=== PATIENT | female | born 1930 | race Caucasian/White ===

== ENCOUNTER 2017-04-20 14:13 | Observation (INO) | payer MEDICARE, MEDICAID, OTHER ==
[2017-04-20] MEDS ORDERED: Enoxaparin 60 MG/0.6 ML Syringe SUBCUT STA (15:25)
--- NOTE | 2017-04-20 15:31 | EDM.PDOC ---
ED HPI GENERAL MEDICAL PROBLEM - General Chief Complaint: Neurological Problem Stated Complaint: DIZZINESS/WEAKNESS ON R SIDE Time Seen by Provider: 04/20/17 14:56 Source of Information: Reports: Patient, RN Notes Reviewed, Other (Friend) History Limitations: Reports: No Limitations - History of Present Illness INITIAL COMMENTS - FREE TEXT/NARRATIVE: The patient states that she was drinking some tea and coffee around 13:00 this afternoon, when she developed right upper and right lower extremity weakness, decreased sensation to her right upper extremity, right lower extremity and the lower half of the right side of her face, and a "feeling dissociation" sensation , wherein she felt like her body would not follow her brains commands. She also experienced a brief "kaleidoscope" vision in her right eye area at no time did she have a headache, facial droop, or difficulty with speech. Her symptoms lasted approximately 15 minutes, during which time she required assistance to get to the bathroom. She took for baby aspirin around 13:30, approximately 15 minutes after her symptoms have resolved. Her symptoms have not recurred. No prior similar symptoms. While the patient does not have any formal diagnoses of any cardiac issues, she does report occasional palpitations. The patient does not have a PCP, and she reports that her last general physical examination was perhaps 60 years ago. - Related Data Allergies Allergy/AdvReac Type Severity Reaction Status Date / Time No Known Allergies Allergy Verified 04/20/17 14:25 Home Meds: Home Meds . [Unable to Verify Home Med List] 04/20/17 [History] Past Medical History - Past Surgical History HEENT Surgical History: Reports: Cataract Surgery, Oral Surgery ([place] teeth extraction) Female Surgical History: Reports: D&C (x 1) Social & Family History - Tobacco Use Smoking Status *Q: Former Smoker Years of Tobacco use: 28 Packs/Tins Daily: 0.2 Month Tobacco Last Used: Quit 1979 - Caffeine Use Caffeine Use: Reports: Coffee Other Caffeine Use: occasionally - Alcohol Use Alcohol Use History: Yes Alcohol Use Frequency: Socially - Recreational Drug Use Recreational Drug Use: No - Living Situation & Occupation Living situation: Reports: , Alone 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 GENERAL - Review of Systems Review Of Systems: See Below Constitutional: Reports: Other (general weakness) HEENT: Reports: No Symptoms Respiratory: Reports: No Symptoms Cardiovascular: Reports: No Symptoms Endocrine: Reports: No Symptoms GI/Abdominal: Reports: No Symptoms : Reports: No Symptoms Musculoskeletal: Reports: No Symptoms Skin: Reports: No Symptoms Neurological: Reports: No Symptoms Psychiatric: Reports: No Symptoms Hematologic/Lymphatic: Reports: No Symptoms Immunologic: Reports: No Symptoms ED EXAM, NEURO - Physical Exam Exam: See Below Exam Limited By: No Limitations General Appearance: Alert, WD/WN, No Apparent Distress Eye Exam: Bilateral Eye: EOMI, Other (S/P cataract surgery) Ears: Normal External Exam, Hearing Grossly Normal Nose: Normal Inspection, No Blood Throat/Mouth: Normal Inspection, Normal Lips, Normal Voice, No Airway Compromise Head Exam: Atraumatic, Normocephalic Neck: Normal Inspection, Full Range of Motion. No: Carotid Bruit Respiratory/Chest: No Respiratory Distress, Lungs Clear, Normal Breath Sounds, No Accessory Muscle Use Cardiovascular: Normal Peripheral Pulses, Regular Rate, Rhythm, No Gallop, No JVD, No Murmur, No Rub GI/Abdominal: Normal Bowel Sounds, Soft, Non-Tender, No Organomegaly, No Distention, No Abnormal Bruit, No Mass (Female) Exam: Deferred Rectal (Female) Exam: Deferred Neurological: Alert, Normal Dorsiflexion, CN II-XII Intact, Normal Plantar Flexion, Normal Reflexes, No Motor/Sensory Deficits, Oriented x 3 Back Exam: Normal Inspection, Full Range of Motion, NT Extremities: Normal Inspection, Normal Range of Motion, No Pedal Edema, Normal Capillary Refill Psychiatric: Normal Affect Skin Exam: Warm, Dry, Intact, Normal Color, No Rash EKG INTERPRETATION EKG Date: 04/20/17 Time: 14:34 Rhythm: NSR Rate (Beats/Min): 74 [place]: Normal P-Wave: Present QRS: Normal ST-T: Normal QT: Normal Comparison: NA - No Prior EKG Course - Vital Signs Last Recorded V/S: Last Vital Signs Temp 36.7 C 04/20/17 14:21 Pulse 74 04/20/17 14:21 Resp 18 04/20/17 14:21 BP 158/80 H 04/20/17 14:21 Pulse Ox 97 04/20/17 14:21 - Orders/Labs/Meds Orders: Active Orders 24 hr Category Date Time Status EKG 12 Lead [EK] Stat Ther 04/20/17 15:24 Ordered Labs: Laboratory Tests 04/20/17 04/20/17 04/20/17 Range/Units 14:50 14:50 14:50 WBC 5.70 (3.98-10.04) K/mm3 RBC 4.99 (3.98-5.22) M/mm3 Hgb 15.5 (11.2-15.7) gm/L Hct 44.7 (34.1-44.9) % MCV 89.6 (79.4-94.8) fl MCH 31.1 (25.6-32.2) pg MCHC 34.7 (32.2-35.5) g/dl RDW Std Deviation 43.9 (36.4-46.3) fL Plt Count 240 (182-369) K/mm3 MPV 9.0 L (9.4-12.3) fl Neutrophils % (Manual) 45 (40-60) % Band Neutrophils % 0 (0-10) % Lymphocytes % (Manual) 50 H (20-40) % Atypical Lymphs % 0 % Monocytes % (Manual) 5 (2-10) % Eosinophils % (Manual) 0 L (0.7-5.8) % Basophils % (Manual) 0 L (0.1-1.2) Platelet Estimate Adequate RBC Morph Comment Normal PT 10.6 (8.0-13.0) SECONDS INR 0.97 APTT 26 (22-36) SECONDS Sodium 141 (136-145) mEq/L Potassium 4.0 (3.5-5.1) mEq/L Chloride 104 (98-107) mEq/L Carbon Dioxide 24 (21-32) mEq/L Anion Gap 17.0 H (5-15) BUN 13 (7-18) mg/dL Creatinine 0.8 (0.55-1.02) mg/dL Est Cr Clr Drug Dosing 41.60 mL/min Estimated GFR (MDRD) > 60 (>60) mL/min BUN/Creatinine Ratio 16.3 (14-18) Glucose 98 (83-115) mg/dL Calcium 9.0 (8.5-10.1) mg/dL Total Bilirubin 0.4 (0.2-1.0) mg/dL AST 20 (15-37) U/L ALT 23 (14-59) U/L Alkaline Phosphatase 66 (46-116) U/L Total Protein 6.9 (6.4-8.2) g/dl Albumin 3.5 (3.4-5.0) g/dl Globulin 3.4 gm/dL Albumin/Globulin Ratio 1.0 (1-2) Meds: Medications Discontinued Medications Generic Name Dose Route Start Last Admin Trade Name Freq PRN Reason Stop Dose Admin Enoxaparin Sodium 50 mg 04/20/17 15:25 04/20/17 15:39 Lovenox SUBCUT 04/20/17 15:26 50 mg ONETIME STA Administration - Re-Assessments/Exams Free Text/Narrative Re-Assessment/Exam: 04/20/17 15:26 Clinically, the patient suffered a TIA. A TIA workup, including an MRI/MRA of the brain and neck, and an echocardiogram, along with blood work, is indicated. I have ordered Lovenox to reduce the risk of the patient having a stroke, and am recommending admission to the hospital, which the patient has agreed to. Case discussed with Dr. Hutchins at 15:23. He agrees to place the patient into observation, on telemetry. Departure - Departure Time of Disposition: 15:28 Disposition: Refer to Observation Condition: Good Clinical Impression: TIA (transient ischemic attack) - Discharge Information - My Orders Last 24 Hours: My Active Orders 04/20/17 15:24 EKG 12 Lead [EK] Stat - Assessment/Plan Last 24 Hours: My Active Orders 04/20/17 15:24 EKG 12 Lead [EK] Stat
[2017-04-20] MEDS ORDERED: Ondansetron 4 MG/2 ML SDV IV PRN (19:03)
[2017-04-20] MEDS ORDERED: LORazepam 2 MG/ML MDV IV PRN (19:03)
[2017-04-20] MEDS ORDERED: Promethazine 12.5 MG in Sodium Chloride 0.9% 50 ML IV PRN (19:03)
[2017-04-20] MEDS ORDERED: Albuterol/Ipratropium 3.0-0.5 MG/3 ML Neb Soln NEB PRN (19:03)
[2017-04-20] MEDS ORDERED: Acetaminophen 325 MG Tab PO PRN (19:03)
[2017-04-20] MEDS ORDERED: Polyethylene Glycol 3350 Powder 17 GM Packet PO PRN (19:03)
[2017-04-20] MEDS ORDERED: Docusate Sodium 100 MG Cap PO PRN (19:03)
[2017-04-20] MEDS ORDERED: Bisacodyl 5 MG Tab PO PRN (19:03)
[2017-04-20] MEDS ORDERED: HYDROmorphone 0.5 MG/0.5 ML Syringe IVPUSH PRN (19:03)
[2017-04-20] MEDS ORDERED: Temazepam 7.5 MG Cap PO PRN (19:03)
[2017-04-20] MEDS ORDERED: Acetaminophen/HYDROcodone 325-5 MG Tab PO PRN (19:03)
[2017-04-20] MEDS ORDERED: Aspirin 325 MG Tab.EC PO ONE (19:09)
[2017-04-20] MEDS ORDERED: Cholecalciferol (Vitamin D3) 1,000 Unit Tab PO SCH (19:15)
[2017-04-20] MEDS ORDERED: Multivitamins,Therapeutic Tab PO SCH (19:15)
--- NOTE | 2017-04-20 19:58 | CT ---
Head CT Technique: Multiple axial sections through the brain were obtained. Intravenous contrast was not utilized. Comparison: No previous intracranial imaging is available. Findings: Ventricles along with basal cisterns and sulci over the convexities are mildly prominent. Minimal diminished density is noted within the periventricular and subcortical white matter compatible with minimal small vessel ischemic demyelination change. 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 No other abnormal parenchymal densities are seen. No evidence of intracranial hemorrhage. No midline shift or mass effect is seen. Slight atherosclerotic calcification is seen within the left vertebral vessel and within the carotid siphon. Bone window settings were reviewed which shows no acute calvarial abnormality. Visualized sinuses shows mild mucosal thickening within the right ethmoid sinuses which is likely chronic and therefore incidental. Impression: 1. Mild senescent change. 2. Sinus finding which is felt to be incidental. 3. No acute intracranial abnormality is identified. Diagnostic code #3
--- NOTE | 2017-04-20 21:23 | PCM.HP ---
H&P History of Present Illness - General Date of Service: 04/20/17 Admit Problem/Dx: Admission Diagnosis/Problem Admission Diagnosis/Problem TIA, Transient ischemic attack Source of Information: Patient, Provider, RN Notes Reviewed History Limitations: Reports: No Limitations - History of Present Illness Initial Comments - Free Text/Narative: This is an 86 yo pleasant elderly white female who presents to the emergency department with stroke like symptoms. Her chief complaints started while she was drinking some tea and coffee at about 13:00 today. She developed right upper and lower extremity weakness associated with this decreased sensation, vision changes, dizziness and weakness. She denies any previous history of it in the past. She denies any facial droop, slurred speech or dysarthria. Her symptoms lasted approximately 15 minutes and completely went away. She did take a baby aspirin before she comes to the emergency department for further evaluation. Patient carries a history of carotid stenosis with unknown severity. She is a very healthy woman in her age group. She is not on routine maintenance medications. Patient has no primary care provider. Her last physical examination was long time ago. Her initial labs in the emergency department shows an unremarkable CBC, Coagulation studies, and chemistry panel. Her EKG shows normal sinus rhythm. Head CT scan was not obtained while in the emergency department. Patient is being admitted for TIA. She is DNR/DNI. - Related Data Allergies/Adverse Reactions: Allergies Allergy/AdvReac Type Severity Reaction Status Date / Time No Known Allergies Allergy Verified 04/20/17 18:07 Home Medications: Home Meds Cholecalciferol (Vitamin D3) [Vitamin D] 5,000 units PO ASDIRECTED 04/20/17 [ History] Multivitamin [Multivitamins] 1 tab PO ASDIRECTED 04/20/17 [History] Past Medical History - Past Health History Medical/Surgical History: Denies Medical/Surgical History HEENT History: Reports: Impaired Vision, Other (See Below) Other HEENT History: wears glasses Cardiovascular History: Reports: Angina, Other (See Below) Other Cardiovascular History: c/o chest pain at times on exerction, it goes away when she rests Respiratory History: Reports: Bronchitis, Recurrent Gastrointestinal History: Reports: None Genitourinary History: Reports: UTI, Recurrent Musculoskeletal History: Reports: Other (See Below) Other Musculoskeletal History: right knee pain occasionally Neurological History: Reports: Other (See Below) Other Neuro History: current TIA symptoms (04/20/17) Psychiatric History: Reports: Anxiety Endocrine/Metabolic History: Reports: None Hematologic History: Reports: None Immunologic History: Reports: None Oncologic (Cancer) History: Reports: None Dermatologic History: Reports: Other (See Below) Other Dermatologic History: dry skin - Past Surgical History HEENT Surgical History: Reports: Cataract Surgery, Other (See Below) Other HEENT Surgeries/Procedures: 2 teeth pulled Cardiovascular Surgical History: Reports: None Respiratory Surgical History: Reports: None GI Surgical History: Reports: Colonoscopy Female Surgical History: Reports: D&C Endocrine Surgical History: Reports: None Neurological Surgical History: Reports: None Musculoskeletal Surgical History: Reports: None Oncologic Surgical History: Reports: None Dermatological Surgical History: Reports: None Social & Family History - Family History Neurological: Reports: CVA, Other (See Below) Other Neurological Family History: patient's mother had a CVA x2 - Tobacco Use Smoking Status *Q: Former Smoker Years of Tobacco use: 30 Packs/Tins Daily: 0.2 Used Tobacco, but Quit: Yes Month Tobacco Last Used: - Caffeine Use Caffeine Use: Reports: Coffee, Tea Other Caffeine Use: occasionally - Alcohol Use Days Per Week of Alcohol Use: 7 Number of Drinks Per Day: 1 Total Drinks Per Week: 7 Date of Last Drink: 04/19/17 - Recreational Drug Use Recreational Drug Use: No - Living Situation & Occupation Living situation: Reports: , Alone 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 Denies: Fever, Chills, Malaise, Fatigue HEENT: Reports: No Symptoms, Visual Changes Pulmonary: Denies: Shortness of Breath Cardiovascular: Denies: Chest Pain, Palpitations, Dyspnea on Exertion, Lightheadedness Gastrointestinal: Denies: Abdominal Pain, Nausea, Vomiting Genitourinary: Reports: No Symptoms Musculoskeletal: Reports: No Symptoms Skin: Denies: Cyanosis, Pallor, Diaphoresis Psychiatric: Denies: Depression, Anxiety, Agitation, Hallucinations Neurological: Reports: Dizziness, Numbness, Weakness. Denies: Confusion, Headache, Paresthesia, Pre-Existing Deficit, Seizure, Syncope, Tingling, Tremors , Trouble Speaking, Difficulty Walking, Change in Speech, Gait Disturbance Hematologic/Lymphatic: Reports: No Symptoms Immunologic: Reports: No Symptoms Exam - Exam Exam: See Below - Vital Signs Vital Signs: Last Vital Signs Temp 36.5 C 04/20/17 20:32 Pulse 69 04/20/17 20:32 Resp 14 04/20/17 20:32 BP 139/80 04/20/17 20:32 Pulse Ox 93 L 04/20/17 20:32 Weight: 51.256 kg - Exam General: Alert, Oriented, Cooperative, Mild Distress HEENT: Conjunctiva Clear, EACs Clear, EOMI, Hearing Intact, Mucosa Moist & [place] , Nares Patent, Normal Nasal Septum, Posterior Pharynx Clear, Pupils Equal, Pupils Reactive Neck: Supple, Trachea Midline, +2 Carotid Pulse wo Bruit, Full Range of Motion. No: JVD Lungs: Clear to Auscultation, Normal Respiratory Effort Cardiovascular: Regular Rate, Regular Rhythm GI/Abdominal Exam: Normal Bowel Sounds, Soft, Non-Tender, No Organomegaly, No Distention, No Abnormal Bruit, No Mass (Female) Exam: Deferred Rectal (Female) Exam: Deferred Back Exam: Normal Inspection, Full Range of Motion Extremities: Normal Inspection, Normal Range of Motion, Non-Tender, No Pedal Edema, Normal Capillary Refill Peripheral Pulses: 3+: Posterior Tibial (L), Posterior Tibial (R), Dorsalis Pedis (L), Dorsalis Pedis (R) Skin: Warm, Dry, Intact Neuro Extensive - Mental Status: Oriented x3, Normal Cognition, Memory Intact Neuro Extensive - Motor, Sensory, Reflexes: CN II-XII Intact, Normal Gait Psychiatric: Alert, Normal Affect, Normal Mood - Patient Data Result Diagrams: 04/20/17 14:50 04/20/17 14:50 EKG INTERPRETATION EKG Date: 04/20/17 Time: 14:34 Rhythm: NSR Rate (Beats/Min): 74 [place]: Normal P-Wave: Present QRS: Normal ST-T: Normal QT: Normal Comparison: NA - No Prior EKG *Q Meaningful Use (ADM) - VTE *Q VTE Criteria *Q: - Stroke *Q Stroke Criteria *Q: - AMI *Q AMI Criteria *Q: Problem List Initiated/Reviewed/Updated: Yes Orders Last 24hrs: Active Orders 24 hr Category Date Time Status Ambulate [RC] ASDIRECTED Care 04/20/17 19:03 Active Cardiac Monitoring [RC] CONTINUOUS Care 04/20/17 19:03 Active EKG Documentation Completion [RC] AM Care 04/20/17 19:03 Active Height and Weight [RC] 04 Care 04/20/17 19:03 Active Intake and Output [RC] 04,16 Care 04/20/17 19:03 Active Oxygen Therapy [RC] PRN Care 04/20/17 19:03 Active RT Aerosol Therapy [RC] ASDIRECTED Care 04/20/17 19:06 Active Swallow Screen [Nursing Bedside Swallow Screen] [RC] Care 04/20/17 19:07 Active ASDIRECTED Up ad Saritha [RC] ASDIRECTED Care 04/20/17 19:03 Active VTE/DVT Education [RC] PER UNIT ROUTINE Care 04/20/17 19:03 Active Vital Signs [RC] Q4HR Care 04/20/17 19:03 Active Consult to Case Management [CONS] Routine Cons 04/20/17 19:03 Active Consult to Oral And Maxillofacial Pathologist [CONS] Routine Cons 04/20/17 19:03 Active Consult to Spiritual Care [CONS] Routine Cons 04/20/17 19:03 Active OT Evaluation and Treatment [CONS] Routine Cons 04/20/17 19:03 Active PT Evaluation and Treatment [CONS] Routine Cons 04/20/17 19:03 Active Heart Healthy Diet [DIET] Diet 04/21/17 Breakfast Active Heart Healthy Diet [DIET] Diet 04/21/17 Breakfast Active Carotid Comp [US] Routine Exams 04/21/17 07:00 Ordered Echo Comp wo Cont [US] Routine Exams 04/21/17 07:00 Ordered BASIC METABOLIC PANEL,BMP [CHEM] AM Lab 04/21/17 05:11 Ordered LIPID PANEL [CHEM] AM Lab 04/21/17 05:11 Ordered MAGNESIUM [CHEM] AM Lab 04/21/17 05:11 Ordered Acetaminophen [Tylenol] Med 04/20/17 19:03 Active 650 mg PO Q4H PRN Acetaminophen/HYDROcodone [[place] 325-5 MG] Med 04/20/17 19:03 Active 1 tab PO Q4H PRN Albuterol/Ipratropium [DuoNeb 3.0-0.5 MG/3 ML] Med 04/20/17 19:03 Active 3 ml NEB Q4H PRN Aspirin Med 04/21/17 09:00 Active 81 mg PO DAILY Bisacodyl [Dulcolax] Med 04/20/17 19:03 Active 5 mg PO DAILY PRN Cholecalciferol (Vitamin D3) [Vitamin D3] Med 04/20/17 19:15 Hold 5,000 units PO ASDIRECTED Docusate Sodium [Colace] Med 04/20/17 19:03 Active 100 mg PO BID PRN Docusate Sodium/Sennosides [Senna Plus] Med 04/20/17 19:03 Active 1 tab PO BID PRN HYDROmorphone [Dilaudid] Med 04/20/17 19:03 Active 0.25 mg IVPUSH Q4H PRN LORazepam [Ativan] Med 04/20/17 19:03 Active 0.25 mg IV Q6H PRN Multivitamins,Therapeutic [Thera] Med 04/20/17 19:15 Hold 1 each PO ASDIRECTED Ondansetron [Zofran] Med 04/20/17 19:03 Active 4 mg IV Q6H PRN Polyethylene Glycol 3350 [MiraLAX] Med 04/20/17 19:03 Active 17 gm PO DAILY PRN Promethazine [Phenergan] 12.5 mg Med 04/20/17 19:03 Active Sodium Chloride 0.9% [Normal Saline] 50 ml IV Q6H Temazepam [Restoril] Med 04/20/17 19:03 Active 7.5 mg PO BEDTIME PRN Resuscitation Status Routine Resus Stat 04/20/17 19:03 Ordered Medication Orders Acetaminophen (Tylenol) 650 mg PO Q4H PRN PRN Reason: Pain (Mild 1-3)/fever Hydrocodone Bitart/Acetaminophen ([place] 325-5 Mg) 1 tab PO Q4H PRN PRN Reason: Pain (moderate 4-6) Albuterol/Ipratropium (Duoneb 3.0-0.5 Mg/3 Ml) 3 ml NEB Q4H PRN PRN Reason: Shortness Of Breath/wheezing Aspirin (Aspirin) 81 mg PO DAILY [place] Bisacodyl (Dulcolax) 5 mg PO DAILY PRN PRN Reason: Constipation Cholecalciferol (Vitamin D3) 5,000 units PO ASDIRECTED [place] Docusate Sodium (Colace) 100 mg PO BID PRN PRN Reason: Constipation Hydromorphone HCl (Dilaudid) 0.25 mg IVPUSH Q4H PRN PRN Reason: Pain (severe 7-10) Promethazine HCl 12.5 mg/ (Sodium Chloride) 50.5 mls @ 100 mls/hr IV Q6H PRN PRN Reason: Nausea/Vomiting Lorazepam (Ativan) 0.25 mg IV Q6H PRN PRN Reason: Anxiety Multivitamins (Thera) 1 each PO ASDIRECTED MARGO Ondansetron HCl (Zofran) 4 mg IV Q6H PRN PRN Reason: Nausea/Vomiting Polyethylene Glycol (Miralax) 17 gm PO DAILY PRN PRN Reason: Constipation Senna/Docusate Sodium (Senna Plus) 1 tab PO BID PRN PRN Reason: Constipation Temazepam (Restoril) 7.5 mg PO BEDTIME PRN PRN Reason: Sleep Assessment/Plan Comment:: Assessment/Plan: Acute: TIA - Unclear in etiology - Thrombosis vs Embolic stroke - Risk Factors: Carotid Atherosclerosis with Unknown Severity per patient - Head CT scan: was not obtained in ED; will get stat imaging study w/o contrast - Patient aware we are limited with resources on weekends and that some tests may have to be done in the morning - Goal of treatment is secondary prevention - NIH score is 0 - Received only Lovenox Sub Q in ED - Stroke Protocol: ASA, Lipid Panel, Aspiration Precaution, 2D Echo, Carotid U/S, Bedside Swallow Eval, PT/OT and Routine Neuro check - Offered brain MRI and head/neck MRA but refused it since it would not mold insert changer even if its positive for stroke Chronic: Hx/o Carotid Atherosclerosis Plan: Admit to OBS with Telemetry Resume home meds if there are any Stroke Protocol EKG in AM Heart Healthy Diet DVT PPx: Lovenox Sub Q received in ED PRN Medications SW/CM for d/c planning Code status: DNR/DNI Additional orders as above Possible d/c in AM if all work up are negative. She is now at baseline
[2017-04-21] MEDS ORDERED: Aspirin 81 MG Tab.Chew PO SCH (09:00)
[2017-04-21] MEDS ORDERED: FLU Vacc TS 2017-18 (65yr UP)/PF 180 MCG/0.5 ML Syringe IM ONE (09:30)
--- NOTE | 2017-04-21 11:20 | PCM.DCSUM1 ---
Discharge Summary - Hospital Course Brief History: This is an 86 yo pleasant elderly white female who presents to the emergency department with stroke like symptoms. She was admitted for TIA work up. - Discharge Data Discharge Date: 04/21/17 Discharge Disposition: Home, Self-Care 01 Condition: Good - Discharge Diagnosis/Problem(s) (1) TIA (transient ischemic attack) SNOMED Code(s): 817196041 ICD Code: G45.9 - TRANSIENT CEREBRAL ISCHEMIC ATTACK, UNSPECIFIED Status: Acute Qualifiers: Transient cerebral ischemia type: unspecified Qualified Code(s): G45.9 - Transient cerebral ischemic attack, unspecified - Patient Summary/Data Operative Procedure(s) Performed: None Complications: None Consults: Consultations 04/20/17 19:03 Consult to Case Management [CONS] Routine Consult to Desktop Publishing Specialist [CONS] Routine Consult to Spiritual Care [CONS] Routine OT Evaluation and Treatment [CONS] Routine PT Evaluation and Treatment [CONS] Routine Labs Pending at D/C: None Recommended Follow-up Testing/Procedures: None Planned Operative Procedure(s) after DC: None Hospital Course: Patient was primarily admitted for TIA work up. She carried a hx/o carotid atherosclerosis. All her basic work up to include head CT scan was negative for acute stroke. She was offered brain MRI and Head/Neck MRI but refused it. Her Lipid panel was normal and no abnormal rhythm noted on telemetry. Her blood pressures have been pretty much normal. However her carotid studies shows moderately carotid stenosis which we felt could be the etiology of her TIA. Her hospital course was uncomplicated. Her 2D echo was completed but final report was unavailable at the time of discharge. She will be discharged with low dose ASA and was advised to follow up with her PCP in 1 week. She will be contacted on her echo report once available for review. She was further advised to come back or seek immediate care should her symptoms persist or get worse. The patient expressed understanding and in agreement with plans as discussed above. All questions were answered. - Patient Instructions Diet: Usual Diet as Tolerated Activity: As Tolerated Driving: May Drive Today Showering/Bathing: May Shower Notify Provider of: Fever, Increased Pain, Nausea and/or Vomiting Other/Special Instructions: - Please resume home/outdoor activities w/o restrictions. - Take 1 tab po of low dose Aspirin for Stroke Prevention. - Recommend you follow up with a primary care provider after discharge. - Come back or seek immediate care should your symptoms persist or get worse - Discharge Plan Prescriptions/Med Rec: Aspirin 81 mg PO DAILY #30 tab.chew Home Medications: Home Meds Cholecalciferol (Vitamin D3) [Vitamin D] 5,000 units PO ASDIRECTED 04/20/17 [ History] Multivitamin [Multivitamins] 1 tab PO ASDIRECTED 04/20/17 [History] Aspirin 81 mg PO DAILY #30 tab.chew 04/21/17 [Rx] Patient Handouts: Transient Ischemic Attack, [id number] - Discharge Summary/Plan Comment DC Time >30 min.: Yes (45 mins) Discharge Summary/Plan Comment: Discharge to Home - General Info Date of Service: 04/21/17 Admission Dx/Problem (Free Text: Admission Diagnosis/Problem Admission Diagnosis/Problem TIA, Transient ischemic attack Subjective Update: Follow Up Functional Status: Reports: Pain Controlled, Tolerating Diet, Ambulating, Urinating. Denies: New Symptoms - Review of Systems General: Denies: Fever, Weakness, Fatigue, Malaise, Chills HEENT: Reports: No Symptoms Pulmonary: Denies: Shortness of Breath Cardiovascular: Denies: Chest Pain, Palpitations, Dyspnea on Exertion, Lightheadedness Gastrointestinal: Denies: Abdominal Pain, Nausea, Vomiting Genitourinary: Reports: No Symptoms Musculoskeletal: Reports: No Symptoms Skin: Denies: Cyanosis, Pallor, Diaphoresis Neurological: Denies: Confusion, Headache, Numbness, Paresthesia, Tingling, Tremors, Trouble Speaking, Difficulty Walking, Weakness, Change in Speech, Gait Disturbance Psychiatric: Denies: Depression, Anxiety, Agitation, Hallucinations Systems Review Comment: No overnight or acute issues. She is doing relatively well. She has no new complaints. - Patient Data Vitals - Most Recent: Last Vital Signs Temp 36.9 C 04/21/17 05:27 Pulse 65 04/21/17 05:27 Resp 14 04/21/17 05:27 BP 97/60 04/21/17 05:27 Pulse Ox 95 04/21/17 05:27 Weight - Most Recent: 51.891 kg I&O - Last 24 hours: Intake & Output 04/20/17 04/21/17 04/21/17 22:59 06:59 14:59 Intake Total 480 200 420 Output Total 1125 Balance 480 -925 420 Lab Results - Last 24 hrs: Laboratory Results - last 24 hr 04/21/17 Range/Units 06:28 Sodium 143 (136-145) mEq/L Potassium 3.8 (3.5-5.1) mEq/L Chloride 107 (98-107) mEq/L Carbon Dioxide 26 (21-32) mEq/L Anion Gap 13.8 (5-15) BUN 13 (7-18) mg/dL Creatinine 0.8 (0.55-1.02) mg/dL Est Cr Clr Drug Dosing 42.12 mL/min Estimated GFR (MDRD) > 60 (>60) mL/min BUN/Creatinine Ratio 16.3 (14-18) Glucose 98 (83-115) mg/dL Calcium 8.7 (8.5-10.1) mg/dL Magnesium 2.1 (1.8-2.4) mg/dl Triglycerides 59 (<150) mg/dL Cholesterol 180 (<200) mg/dL LDL Cholesterol Direct 88 (<100) mg/dL HDL Cholesterol 80.0 H (40-59) mg/dL Med Orders - Current: Current Medications Acetaminophen (Tylenol) 650 mg PO Q4H PRN PRN Reason: Pain (Mild 1-3)/fever Hydrocodone Bitart/Acetaminophen ([place] 325-5 Mg) 1 tab PO Q4H PRN PRN Reason: Pain (moderate 4-6) Albuterol/Ipratropium (Duoneb 3.0-0.5 Mg/3 Ml) 3 ml NEB Q4H PRN PRN Reason: Shortness Of Breath/wheezing Aspirin (Aspirin) 81 mg PO DAILY [facility] Last Admin: 04/21/17 09:12 Dose: 81 mg Bisacodyl (Dulcolax) 5 mg PO DAILY PRN PRN Reason: Constipation Cholecalciferol (Vitamin D3) 5,000 units PO ASDIRECTED [facility] Docusate Sodium (Colace) 100 mg PO BID PRN PRN Reason: Constipation Hydromorphone HCl (Dilaudid) 0.25 mg IVPUSH Q4H PRN PRN Reason: Pain (severe 7-10) Promethazine HCl 12.5 mg/ (Sodium Chloride) 50.5 mls @ 100 mls/hr IV Q6H PRN PRN Reason: Nausea/Vomiting Lorazepam (Ativan) 0.25 mg IV Q6H PRN PRN Reason: Anxiety Multivitamins (Thera) 1 each PO ASDIRECTED [facility] Ondansetron HCl (Zofran) 4 mg IV Q6H PRN PRN Reason: Nausea/Vomiting Polyethylene Glycol (Miralax) 17 gm PO DAILY PRN PRN Reason: Constipation Senna/Docusate Sodium (Senna Plus) 1 tab PO BID PRN PRN Reason: Constipation Temazepam (Restoril) 7.5 mg PO BEDTIME PRN PRN Reason: Sleep Discontinued Medications Aspirin (Ecotrin) 325 mg PO ONETIME ONE Stop: 04/20/17 19:10 Last Admin: 04/20/17 21:20 Dose: 325 mg Enoxaparin Sodium (Lovenox) 50 mg SUBCUT ONETIME STA Stop: 04/20/17 15:26 Last Admin: 04/20/17 15:39 Dose: 50 mg Influenza Virus Vaccine (Pharmacy To Dose - Influenza Vaccine) 1 each IM ONETIME ONE Stop: 04/21/17 09:25 Influenza Virus Vaccine (Fluzone High-Dose 2016-) 180 mcg IM .ONCE ONE Stop: 04/21/17 09:31 - Exam General: Reports: Alert, Oriented, Cooperative, No Acute Distress HEENT: Reports: Pupils Equal, Pupils Reactive, EOMI, Mucous Membr. Moist/Tripp Neck: Reports: Supple, Trachea Midline, No JVD, No Thyromegaly Lungs: Reports: Clear to Auscultation, Normal Respiratory Effort Cardiovascular: Reports: Regular Rate, Regular Rhythm GI/Abdominal Exam: Normal Bowel Sounds, Soft, Non-Tender, No Organomegaly, No Distention, No Mass (Female) Exam: Deferred Rectal (Female) Exam: Deferred Back Exam: Reports: Normal Inspection, Full Range of Motion Extremities: Normal Inspection, Normal Range of Motion, Non-Tender, No Pedal Edema, Normal Capillary Refill Skin: Reports: Warm, Dry, Intact Neurological: Reports: No New Focal Deficit Psy/Mental Status: Reports: Alert, Normal Affect, Normal Mood *Q Meaningful Use (DIS) - VTE *Q VTE Criteria *Q: - Stroke *Q Stroke Criteria *Q: - AMI *Q AMI Criteria *Q:
--- NOTE | 2017-04-21 14:45 | US ---
Carotid ultrasound: Duplex and color flow imaging was obtained of the carotid arteries. Comparison: No prior carotid imaging. Calcific and heterogeneous plaque is seen within the carotid bulb and proximal internal carotid artery showing irregular surface margins. This is moderate in amount. Mild amount of homogeneous plaque seen within the left carotid bulb which has smooth margins. Velocity measurements Right side: CCA has a peak systolic velocity of 0.95 m/s. ICA has a peak systolic velocity of 0.93 m/s and peak end-diastolic velocity of 0.27 m/s. ECA has a peak systolic velocity of 0.62 m/s. Vertebral artery has a peak systolic velocity of 0.53 m/s. ICA/CCA ratio is 1.0. Left side: CCA has a peak systolic velocity of 1.05 m/s. ICA has a peak systolic velocity of 1.02 m/s and peak end-diastolic velocity of 0.17 m/s. ECA has a peak systolic velocity of 0.69 m/s. Vertebral artery has a peak systolic velocity of 0.63 m/s. ICA/CCA ratio is 1.0. Impression: 1. Plaque as described above worse on the right side. 2. Velocity measurements within both internal carotid arteries correspond to stenosis in the range of 1-49%. Diagnostic code #3
== END 2017-04-21 15:50 | disposition home or self-care (01) ==
LOC: JD.ED 14:13 → JD.MS 16:34
PROVIDERS: ADMIT Internal Medicine; ATTEND Internal Medicine
DX: G45.9 Transient cerebral ischemic attack, unspecified (principal); Z79.899 Other long term (current) drug therapy; Z98.49 Cataract extraction status, unspecified eye; Z98.818 Other dental procedure status; Z98.890 Other specified postprocedural states; Z87.440 Personal history of urinary (tract) infections; Z87.891 Personal history of nicotine dependence; Z82.3 Family history of stroke
CPT/HCPCS: 36415; 70450; 80048; 80053; 80061; 83735; 85025; 85610; 85730; 93005; 93306; 93880; 96372; 97161; 97165; 99285; A9270; J1650; 93010; G0378